=== PATIENT | female | born 1975 | race Caucasian/White ===

== ENCOUNTER 2023-08-12 13:11 | Emergency (ER) | payer OTHER ==
[2023-08-12] MEDS ORDERED: Sodium Chloride 0.9% 1,000 ML IV ONE (14:38)
[2023-08-12] MEDS ORDERED: HYDROmorphone 2 MG/ML SDV IVPUSH ONE (14:38)
[2023-08-12] MEDS ORDERED: Naloxone 0.4 MG/ML SDV IVPUSH PRN (14:38)
[2023-08-12] MEDS ORDERED: Ondansetron 4 MG/2 ML SDV IVPUSH ONE (14:38)
[2023-08-12] MEDS ORDERED: Sodium Chloride 0.9% 10 ML Syringe FLUSH PRN (14:38)
[2023-08-12 14:57] LABS: BASOPHILS ABSOLUTE AUTO 0.1 x10-3/uL (0.0-0.1); BASOPHILS PERCENT AUTO 0.6 % (0.2-1.5); EOSINOPHILS ABSOLUTE AUTO 0.1 x10-3/uL (0.0-0.8); EOSINOPHILS PERCENT AUTO 0.9 % (0.6-8.1); HEMATOCRIT 41.2 % (34.2-48.2); HEMOGLOBIN 13.7 g/dL (11.4-15.5); LYMPHOCYTES ABSOLUTE AUTO 2.6 x10-3/uL (1.0-4.4); LYMPHOCYTES PERCENT AUTO 21.4 % (18.4-52.1); MEAN CORPUSCULAR HEMOGLOBIN 30.9 pg (23.9-33.9); MEAN CORPUSCULAR HGB CONC 33.4 g/dL (31.9-34.8); MEAN CORPUSCULAR VOLUME 92.5 fL (76.7-100.5); MEAN PLATELET VOLUME 9.7 fL (7.1-12.4); MONOCYTES ABSOLUTE AUTO 0.8 x10-3/uL (0.3-1.0); MONOCYTES PERCENT AUTO 6.5 % (4.4-15.7); NEUTROPHILS ABSOLUTE AUTO 8.7 x10-3/uL (1.5-6.3); NEUTROPHILS PERCENT AUTO 70.6 % (30.8-76.2); PLATELET COUNT,PLT 192 x10(3)uL (151-488); RED BLOOD CELL COUNT 4.45 x10(6)uL (3.60-5.20); RED CELL DISTRIBUTION WIDTH 15.6 % (12.3-16.5); WHITE BLOOD CELL COUNT,WBC 12.4 x10-3/uL (3.0-10.3)
[2023-08-12 15:03] LABS: BLOOD UREA NITROGEN,BUN 12 mg/dL (7-18); BUN/CREATININE RATIO 13.3 (9-20); CALCIUM 9.3 mg/dL (8.6-10.2); CARBON DIOXIDE,CO2 34 mmol/L (21-32); CHLORIDE,CL 105 mmol/L (100-110); CREATININE 0.9 mg/dL (0.55-1.02); EST CRCL DRUG DOSING (CG) 73.12 mL/min; ESTIMATED GFR 80 mL/min (>60); GLUCOSE RANDOM 98 mg/dL (80-116); POTASSIUM,K 4.1 mmol/L (3.5-5.3); SODIUM,NA 141 mmol/L (135-145)
[2023-08-12 15:09] LABS: A/G RATIO 0.7; ALANINE AMINOTRANSFERASE,ALT 79 U/L (12-36); ALBUMIN 3.3 g/dL (3.5-5.2); ALKALINE PHOSPHATASE 195 IU/L (56-112); ASPARTATE AMNIOTRANSFERASE,AST 48 IU/L (5-25); BILIRUBIN TOTAL 0.2 mg/dL (0.1-1.3); C-REACTIVE PROTEIN 2.66 mg/dL (<0.50); MAGNESIUM 1.5 mg/dL (1.8-2.5); PROTEIN TOTAL,TP 7.8 g/dL (6.0-8.0)
[2023-08-12 15:19] LABS: BILIRUBIN,URINE NEGATIVE (NEGATIVE); GLUCOSE,URINE NORMAL (NORMAL); KETONES,URINE NEGATIVE (NEGATIVE); LEUKOCYTE ESTERASE,URINE NEGATIVE (NEGATIVE); NITRITE,URINE NEGATIVE (NEGATIVE); OCCULT BLOOD,URINE NEGATIVE (NEGATIVE); PROTEIN,URINE NEGATIVE (NEGATIVE); UROBILINOGEN,URINE NORMAL (NEGATIVE)
[2023-08-12 15:29] LABS: APPEARANCE,URINE CLEAR (CLEAR); BACTERIA,URINE OCCASIONAL (NS); COLOR,URINE YELLOW (YELLOW); RBC,URINE 0-5 (0-5); SQUAMOUS EPITHELIAL CELLS,UR FEW (NS,R,O); WBC,URINE 0-5 (0-5)
[2023-08-12] MEDS ORDERED: Magnesium Sulfate/Water 2 GM in Premix Bag 1 BAG IV ONE (15:32)
[2023-08-12] MEDS ORDERED: Iopamidol 755 Mg/ML 100 ML Bottle IV SCH (17:15)
== END 2023-08-12 18:15 | disposition home or self-care (01) ==
LOC: FB.ED 13:11
DX: K57.32 Diverticulitis of large intestine without perforation or abscess without bleeding (principal); E86.0 Dehydration; E83.42 Hypomagnesemia; E03.9 Hypothyroidism, unspecified; E66.9 Obesity, unspecified; F17.200 Nicotine dependence, unspecified, uncomplicated; Z79.899 Other long term (current) drug therapy; Z68.36 Body mass index [BMI] 36.0-36.9, adult
CPT/HCPCS: 36415; 74177; 80053; 81001; 83690; 83735; 85025; 86140; 96361; 96365; 96375; 99284; J1170; J2405; J3475; J7030; Q9967

== ENCOUNTER 2024-10-12 05:31 | Emergency (ER) | payer OTHER ==
[2024-10-12] MEDS ORDERED: Sodium Chloride 0.9% 10 ML Syringe FLUSH PRN (06:00)
[2024-10-12 06:25] LABS: BASOPHILS ABSOLUTE AUTO 0.1 x10-3/uL (0.0-0.1); BASOPHILS PERCENT AUTO 0.5 % (0.2-1.5); BLOOD UREA NITROGEN,BUN 12 mg/dL (7-18); CALCIUM 9.1 mg/dL (8.6-10.2); CARBON DIOXIDE,CO2 28 mmol/L (21-32); CHLORIDE,CL 101 mmol/L (100-110); ESTIMATED GFR 70 mL/min (>60); GLUCOSE RANDOM 145 mg/dL (80-116); HEMATOCRIT 40.8 % (34.2-48.2); HEMOGLOBIN 13.9 g/dL (11.4-15.5); LYMPHOCYTES ABSOLUTE AUTO 1.1 x10-3/uL (1.0-4.4); LYMPHOCYTES PERCENT AUTO 11.8 % (18.4-52.1); MEAN CORPUSCULAR HEMOGLOBIN 31.4 pg (23.9-33.9); MEAN CORPUSCULAR VOLUME 92.5 fL (76.7-100.5); MEAN PLATELET VOLUME 9.6 fL (7.1-12.4); MONOCYTES ABSOLUTE AUTO 0.7 x10-3/uL (0.3-1.0); MONOCYTES PERCENT AUTO 7.7 % (4.4-15.7); NEUTROPHILS ABSOLUTE AUTO 7.7 x10-3/uL (1.5-6.3); PLATELET COUNT,PLT 172 x10(3)uL (151-488); POTASSIUM,K 3.8 mmol/L (3.5-5.3); RED BLOOD CELL COUNT 4.41 x10(6)uL (3.60-5.20); RED CELL DISTRIBUTION WIDTH 15.7 % (12.3-16.5); SODIUM,NA 138 mmol/L (135-145); WHITE BLOOD CELL COUNT,WBC 9.7 x10-3/uL (3.0-10.3)
[2024-10-12 06:29] LABS: C-REACTIVE PROTEIN 2.39 mg/dL (<0.50)
[2024-10-12] MEDS: Ondansetron 4 MG/2 ML SDV IVPUSH ONE (06:29)
[2024-10-12] MEDS: Sodium Chloride 0.9% 1,000 ML IV ONE ×2 (06:29→07:40)
[2024-10-12 06:31] LABS: A/G RATIO 0.7; ALANINE AMINOTRANSFERASE,ALT 82 U/L (12-36); ALBUMIN 3.5 g/dL (3.5-5.2); ALKALINE PHOSPHATASE 231 IU/L (56-112); ASPARTATE AMNIOTRANSFERASE,AST 72 IU/L (5-25); BILIRUBIN TOTAL 0.3 mg/dL (0.1-1.3); PROTEIN TOTAL,TP 8.5 g/dL (6.0-8.0)
[2024-10-12] MEDS: Ketorolac 30 MG/ML SDV IVPUSH ONE (06:31)
[2024-10-12 07:44] LABS: BILIRUBIN,URINE NEGATIVE (NEGATIVE); GLUCOSE,URINE NORMAL (NORMAL); KETONES,URINE NEGATIVE (NEGATIVE); LEUKOCYTE ESTERASE,URINE NEGATIVE (NEGATIVE); NITRITE,URINE NEGATIVE (NEGATIVE); OCCULT BLOOD,URINE MODERATE (NEGATIVE); PROTEIN,URINE 30 mg/dL (NEGATIVE); UROBILINOGEN,URINE NORMAL (NEGATIVE)
[2024-10-12 07:45] LABS: APPEARANCE,URINE SLIGHTLY CLOUDY (CLEAR); COLOR,URINE YELLOW (YELLOW)
[2024-10-12 07:52] LABS: BACTERIA,URINE FEW (NS); EPITHELIAL CELLS,URINE OCCASIONAL; HYALINE CASTS,URINE FEW (NS); RBC,URINE 0-5 (0-5); WBC,URINE 0-5 (0-5)
== END 2024-10-12 08:46 | disposition home or self-care (01) ==
LOC: FB.ED 05:31
DX: J10.1 Influenza due to other identified influenza virus with other respiratory manifestations (principal); E03.9 Hypothyroidism, unspecified; E86.0 Dehydration; K76.89 Other specified diseases of liver; F17.210 Nicotine dependence, cigarettes, uncomplicated; Z88.5 Allergy status to narcotic agent; Z79.899 Other long term (current) drug therapy; Z79.890 Hormone replacement therapy
CPT/HCPCS: 36415; 80053; 81001; 83605; 83690; 85025; 86140; 87428; 96361; 96374; 96375; 99284; J1885; J2405; J7030

== ENCOUNTER 2025-01-18 19:32 | Emergency (ER) | payer OTHER | END 2025-01-18 20:35 | disposition home or self-care (01) | LOC: FB.ED 19:32 | DX: S62.665A Nondisplaced fracture of distal phalanx of left ring finger, initial encounter for closed fracture (principal); K21.9 Gastro-esophageal reflux disease without esophagitis; E66.9 Obesity, unspecified; E03.9 Hypothyroidism, unspecified; Z88.8 Allergy status to other drugs, medicaments and biological substances; Z79.890 Hormone replacement therapy; Z79.899 Other long term (current) drug therapy; W20.8XXA Other cause of strike by thrown, projected or falling object, initial encounter | CPT/HCPCS: 73140-F3; 99283 ==

== ENCOUNTER 2025-06-30 14:54 | Observation (INO) | payer OTHER ==
[2025-06-30] MEDS ORDERED: Sodium Chloride 0.9% 10 ML Syringe FLUSH PRN (15:29)
[2025-06-30] MEDS ORDERED: Naloxone 0.4 MG/ML SDV IVPUSH PRN (15:29)
[2025-06-30] MEDS: Ondansetron 4 MG/2 ML SDV IVPUSH ONE (15:46)
[2025-06-30 15:51] LABS: MEAN PLATELET VOLUME 9.6 fL (7.1-12.4); PLATELET COUNT,PLT 188 x10(3)uL (151-488); RED BLOOD CELL COUNT 4.55 x10(6)uL (3.60-5.20); RED CELL DISTRIBUTION WIDTH 16.0 % (12.3-16.5); WHITE BLOOD CELL COUNT,WBC 15.4 x10-3/uL (3.0-10.3)
[2025-06-30 16:01] LABS: BAND PERCENT MAN 3 % (0-6); BLOOD UREA NITROGEN,BUN 8 mg/dL (7-18); CARBON DIOXIDE,CO2 27 mmol/L (21-32); CHLORIDE,CL 102 mmol/L (100-110); CREATININE 0.8 mg/dL (0.55-1.02); EST CRCL DRUG DOSING (CG) 80.51 mL/min; ESTIMATED GFR 91 mL/min (>60); GLUCOSE RANDOM 134 mg/dL (80-116); LYMPHOCYTES PERCENT MAN 19 % (13-37); MONOCYTES PERCENT MAN 6 % (4-12); POTASSIUM,K 3.6 mmol/L (3.5-5.3); SEG NEUTROPHILS PERCENT MAN 72 % (46-82); SODIUM,NA 138 mmol/L (135-145)
[2025-06-30] MEDS: Iopamidol 755 Mg/ML 100 ML Bottle IV SCH (16:06)
[2025-06-30 16:07] LABS: A/G RATIO 0.7; ALANINE AMINOTRANSFERASE,ALT 51 U/L (12-36); ASPARTATE AMNIOTRANSFERASE,AST 34 IU/L (5-25); BILIRUBIN TOTAL 0.8 mg/dL (0.1-1.3); PROTEIN TOTAL,TP 8.1 g/dL (6.0-8.0)
[2025-06-30 16:10] LABS: LACTIC ACID 0.8 mmol/L (0.4-2.0)
[2025-06-30 16:46] LABS: GLUCOSE,URINE NORMAL (NORMAL); OCCULT BLOOD,URINE NEGATIVE (NEGATIVE)
[2025-06-30 16:51] LABS: APPEARANCE,URINE CLEAR (CLEAR)
[2025-06-30 16:52] LABS: SQUAMOUS EPITHELIAL CELLS,UR OCCASIONAL (NS,R,O)
[2025-07-01] MEDS: Ondansetron 4 MG/2 ML SDV IVPUSH PRN (00:58)
[2025-07-01] MEDS: Remove Patch *NICOTINE TRDERM SCH (09:16)
[2025-07-01] MEDS: Acetaminophen/HYDROcodone 325-5 MG Tab PO PRN (09:59)
[2025-07-01] MEDS ORDERED: fentaNYL 100 MCG/2 ML SDV IV ONE (13:11)
[2025-07-01] MEDS ORDERED: Rocuronium 100 MG/10 ML MDV IV ONE (13:11)
[2025-07-01] MEDS ORDERED: Ondansetron 4 MG/2 ML SDV IVPUSH ONE (13:11)
[2025-07-01] MEDS ORDERED: Midazolam 1 MG/ML 2 ML SDV IV ONE (13:11)
[2025-07-01] MEDS ORDERED: Dexamethasone 4 MG/ML 5 ML MDV IVPUSH ONE (13:11)
[2025-07-01] MEDS ORDERED: dexmedeTOMIDine HCl 200 MCG/2 ML SDV IV ONE (13:11)
[2025-07-01] MEDS ORDERED: Ketorolac 30 MG/ML SDV IVPUSH ONE (13:11)
[2025-07-01] MEDS ORDERED: Propofol 200 MG/20 ML SDV IV ONE (13:11)
[2025-07-01] MEDS ORDERED: Glycopyrrolate 0.2 MG/ML 5 ML MDV IV ONE (13:11)
== END 2025-07-01 13:12 | disposition home or self-care (01) ==
LOC: FB.ED 14:54 → FB.MS 18:01
PROVIDERS: ADMIT Surgery; ATTEND Surgery
DX: K35.80 Unspecified acute appendicitis (principal); E03.9 Hypothyroidism, unspecified; E66.9 Obesity, unspecified; F17.200 Nicotine dependence, unspecified, uncomplicated; Z88.8 Allergy status to other drugs, medicaments and biological substances; Z68.30 Body mass index [BMI] 30.0-30.9, adult; Z79.890 Hormone replacement therapy; Z79.899 Other long term (current) drug therapy
CPT/HCPCS: 00840; 44970; 74177; 80053; 81001; 83605; 83690; 85025; 88304; 94150; A9270; J0665; J1100; J1596; J1885; J2003; J2250; J2270; J2405; J2543; J2704; J2710; J3010; J7030; Q9967; 96365; 96375; 99285-25